=== PATIENT | male | born 1975 | race African-American/Black ===

== ENCOUNTER 2018-08-26 18:10 | Emergency (ER) | payer BC ==
[2018-08-26] MEDS ORDERED: Ondansetron ODT 4 MG TAB ONE (18:26)
[2018-08-26 19:01] LABS: #Basophils 0.1 thou/uL (0.0-0.2); #Eosinphils 0.1 thou/uL (0.0-0.7); #Lymphocytes 1.9 thou/uL (1.20-3.40); #Monocytes 0.4 thou/uL (0.11-0.59); #Neutrophils 2.5 thou/uL (1.40-6.50); %Basophils 1.7 % (0.0-1.0); %Eosinophils 1.3 % (0.0-10.0); %Lymphocytes 38.4 % (21.0-51.0); %Monocytes 8.3 % (0.0-10.0); %Neutrophils 50.3 % (42.0-75.0); Hemoglobin 14.7 g/dL (14.0-18.0); Mean Corpuscular HGB CONC 34.6 g/dL (32.0-36.0); Mean Corpuscular Hemoglobin 30.4 pg (27.0-31.0); Mean Corpuscular Volume 87.7 fL (78.0-98.0); Mean Platelet Volume 8.3 fL (7.4-10.4); Platelet Count 203 thou/uL (130-400); RBC Distribution Width 12.6 % (11.5-14.5); Red Blood Cell (RBC) Count 4.84 mill/uL (4.70-6.10)
[2018-08-26] MEDS ORDERED: Ondansetron PF 4 MG/2 ML Vial ONE (19:02)
[2018-08-26] MEDS ORDERED: Ketorolac Tromethamine 30 MG/ML VIAL ONE (19:02)
[2018-08-26 19:16] LABS: ALT (SGPT) 44 U/L (8-55); AST (SGOT) 37 U/L (5-34); Albumin 3.9 g/dL (3.5-5.0); Alkaline Phosphatase 77 U/L (40-150); Anion Gap 15 mmol/L (10-20); BUN (Urea Nitrogen) 15 mg/dL (8.9-20.6); CK (CPK) 202 U/L (30-200); Calc. Creatinine Clearance 0 mL/min (70-130); Calcium 9.4 mg/dL (7.8-10.44); Carbon Dioxide 22 mmol/L (22-29); Chloride 105 mmol/L (98-107); Estimated GFR-MDRD 80; Globulin 3.4 g/dL (2.4-3.5); Glucose 255 mg/dL (70-105); Lipase 27 U/L (8-78); Potassium 4.5 mmol/L (3.5-5.1); Protein, Total 7.3 g/dL (6.0-8.3); Sodium 137 mmol/L (136-145)
--- NOTE | 2018-08-26 20:58 | CT ---
CT ABDOMEN AND PELVIS WITH CONTRAST: HISTORY: Abdominal pain. Decreased appetite. Diarrhea. FINDINGS: ABDOMEN: The lung bases are clear. There is contrast within the distal esophagus, which would indicate reflux. The liver, spleen, pancr eas, and gallbladder regions appear unremarkable. The right and left adrenal glands and the right and left kidneys are normal in appearance. No signif icant periaortic adenopathy. There are some small mesenteric nodes, mostly seen near the root of the mesentery. Aortocaval nodes are slightly more numerous than typically seen but do not appear signif icantly enlarged and may just be reactive. There is a moderate amount of stool present within the colon. No bowel wall thickening is noted. PELVIS: A prominent paraumbilical hernia is seen with a very wide mouth to the hernia. Minimal dania iation of small bowel into this area. No obstruction. The appendix is normal. No evidence of any s ignificant free fluid or any significant adenopathy or mass. IMPRESSION: No acute findings of the abdomen or pelvis. Incidental findings as noted above. POS: BRIAN
[2018-08-26 21:03] LABS: Bilirubin Small (Negative); Blood, Urine Negative (Negative); Clarity Clear (Clear); Glucose, Urine (Dipstick) >=1000 mg/dL (Negative); Leukocyte Negative (Negative); Nitrite Negative (Negative); Protein, Urine (Dipstick) 30 mg/dL (Neg-Trace)
[2018-08-26 21:05] LABS: Specific Gravity, Urine 1.025 (1.002-1.036)
[2018-08-26 21:09] LABS: Bacteria/HPF None Seen HPF (None Seen); Hyaline Casts/LPF 0-3 HYALINE CAST LPF (0-3 Hyaline); RBC/HPF 0-3 HPF (0-3); Squamous Epithelial 0-3 HPF (0-3); WBC/HPF 0-3 HPF (0-3)
== END 2018-08-26 21:25 | disposition home or self-care (01) ==
LOC: SCSER 18:10
DX: R10.33 Periumbilical pain (principal); R11.2 Nausea with vomiting, unspecified; R19.7 Diarrhea, unspecified; I25.10 Atherosclerotic heart disease of native coronary artery without angina pectoris; E11.9 Type 2 diabetes mellitus without complications; Z79.4 Long term (current) use of insulin; K21.9 Gastro-esophageal reflux disease without esophagitis; E78.5 Hyperlipidemia, unspecified; I10 Essential (primary) hypertension
CPT/HCPCS: 74177; 80053; 81003; 81015; 82550; 83605; 83690; 85025; 96361; 96374; 96375; J1885; J2405; Q0162

== ENCOUNTER 2025-05-30 16:22 | Inpatient (IN) | payer BC, OTHER ==
[~2025-05-30 16:22] MED LIST: Iopamidol-370 76% 500 ML MDV (1 ML CHARGE) ONE
[2025-05-30] MEDS ORDERED: Ondansetron PF 4 MG/2 ML Vial ONE ×2 (16:32→16:41)
[2025-05-30 16:44] LABS: #Basophils Less than 0.03 10x3/uL (0.0-0.2); #Eosinophils Less than 0.03 10x3/uL (0.0-0.7); #Monocytes 0.50 10x3/uL (0.11-0.59); #Neutrophils 3.21 10x3/uL (1.40-6.50); %Basophils 0.3 % (0.0-1.0); %Eosinophils 0.1 % (0.0-10.0); %Lymphocytes 44.5 % (21.0-51.0); %Monocytes 7.4 % (0.0-10.0); %Neutrophils 47.4 % (42.0-75.0); Hematocrit 39.5 % (42.0-52.0); Hemoglobin 14.2 g/dL (14.0-18.0); Mean Corpuscular Hemoglobin 31.8 pg (27.0-31.0); Mean Corpuscular Volume 88.6 fL (78.0-98.0); Platelet Count 184 10x3/uL (130-400); Red Blood Cell (RBC) Count 4.46 mill/uL (4.70-6.10); White Blood Cell (WBC) Count 6.77 10x3/uL (4.8-10.8)
[2025-05-30 17:04] LABS: ALT (SGPT) 28 U/L (Less than 45); AST (SGOT) 31 U/L (11-34); Albumin 4.1 g/dL (3.1-4.5); Alkaline Phosphatase 70 U/L (40-110); Anion Gap 24 mmol/L (10-20); BUN (Urea Nitrogen) 13 mg/dL (8.4-25.7); Bilirubin, Total 1.7 mg/dL (0.3-1.2); Calc. Creatinine Clearance 0 mL/min (70-130); Calcium 9.7 mg/dL (7.8-10.44); Carbon Dioxide 14 mmol/L (22-29); Chloride 102 mmol/L (98-107); Globulin 3.6 g/dL (2.4-3.5); Glucose 262 mg/dL (70-105); Potassium 3.5 mmol/L (3.5-5.1); Sodium 136 mmol/L (136-145)
[2025-05-30 17:41] LABS: Lipase 68 U/L (8-78); Magnesium 1.5 mg/dL (1.6-2.6)
[2025-05-30 17:42] LABS: Acetaminophen Less than 10 mcg/mL (Less than 10); Salicylate Less than 8.0 mg/dL (Less than 8.0)
[2025-05-30] MEDS ORDERED: LevoFLOXacin 750 mg/D5W 150 ml Premix Bag ONE (18:40)
[2025-05-30] MEDS ORDERED: Dextrose 50% Abboject 50 ML SYRINGE SLOW IVP PRN (20:30)
[2025-05-30] MEDS ORDERED: hydrALAZINE 20 MG/ML VIAL SLOW IVP PRN (20:30)
[2025-05-30] MEDS ORDERED: Glucagon 1 MG/ML KIT IM PRN (20:30)
[2025-05-30 20:33] LABS: Actual Bicarbonate (HCO3v) 20.7 mEq/L (22-28); Base Excess -2.1 mEq/L (-2.0 to +3.0); Calcium, Ionized (venous) 1.09 mmol/L (1.16-1.32); Chloride (VBG) 101 mmol/L (98-106); Hematocrit-VBG 46 % (42.0-52.0); Hemoglobin (Hb) 15.6 g/dL (13.1-17.2); Potassium (VBG) 3.68 mmol/L (3.70-5.30); Sodium 140 mmol/L (133-146)
[2025-05-30] MEDS ORDERED: Cefepime 2 GM VIAL ONE (20:52)
[2025-05-30] MEDS ORDERED: metroNIDAZOLE 500 MG (100 mL) BAG ONE (21:53)
[2025-05-30] MEDS ORDERED: Famotidine/PF 20 mg/2ml Vial ONE (21:53)
[2025-05-30] MEDS: Famotidine 20 MG TAB PO SCH (22:10)
[2025-05-30] MEDS ORDERED: Magnesium 2 GM/50 ML BAG (IN WATER) ONE (23:48)
[2025-05-30] MEDS: Magnesium 2 GM/50 ML(in water) 2 GM in Premix 1 BAG IVPB SCH (23:54)
[2025-05-31 01:17] VITALS: BMI 21.4
[2025-05-31] MEDS: Acetaminophen 500 MG TAB PO SCH (01:58)
[2025-05-31] MEDS ORDERED: Acetaminophen 500 MG TAB PO SCH (02:00)
[2025-05-31 04:15] LABS: #Basophils Less than 0.03 10x3/uL (0.0-0.2); #Eosinophils Less than 0.03 10x3/uL (0.0-0.7); #Monocytes 0.36 10x3/uL (0.11-0.59); #Neutrophils 4.81 10x3/uL (1.40-6.50); %Basophils 0.2 % (0.0-1.0); %Eosinophils 0.0 % (0.0-10.0); %Lymphocytes 12.8 % (21.0-51.0); %Monocytes 6.1 % (0.0-10.0); %Neutrophils 80.7 % (42.0-75.0); Hematocrit 39.0 % (42.0-52.0); Hemoglobin 13.6 g/dL (14.0-18.0); Mean Corpuscular Hemoglobin 31.9 pg (27.0-31.0); Mean Corpuscular Volume 91.5 fL (78.0-98.0); Platelet Count 148 10x3/uL (130-400); Red Blood Cell (RBC) Count 4.26 mill/uL (4.70-6.10); White Blood Cell (WBC) Count 5.95 10x3/uL (4.8-10.8)
[2025-05-31 04:37] LABS: ALT (SGPT) 27 U/L (Less than 45); AST (SGOT) 19 U/L (11-34); Albumin 3.9 g/dL (3.1-4.5); Alkaline Phosphatase 62 U/L (40-110); Anion Gap 15 mmol/L (10-20); BUN (Urea Nitrogen) 14 mg/dL (8.4-25.7); Bilirubin, Total 1.6 mg/dL (0.3-1.2); Calc. Creatinine Clearance 95 mL/min (70-130); Calcium 8.5 mg/dL (7.8-10.44); Carbon Dioxide 20 mmol/L (22-29); Chloride 107 mmol/L (98-107); Globulin 3.1 g/dL (2.4-3.5); Glucose 226 mg/dL (70-105); Potassium 4.0 mmol/L (3.5-5.1); Sodium 138 mmol/L (136-145)
[2025-05-31] MEDS: Ketorolac Tromethamine 30 MG (1 mL) VIAL IVP SCH (06:48)
[2025-05-31] MEDS ORDERED: Ondansetron PF 4 MG/2 ML Vial IVP PRN (10:24)
[2025-05-31] MEDS: Pantoprazole 40 MG VIAL IVP SCH (11:49)
[2025-05-31] MEDS: Aspirin 81 mg Enteric Coated Tablet PO SCH (12:25)
[2025-05-31] MEDS: BIKTARVY 50-200-25 MG TABLET PO SCH (12:26)
[2025-05-31] MEDS ORDERED: Furosemide 40 MG (4 mL) VIAL SLOW IVP SCH (14:00)
[2025-05-31] MEDS: Ketorolac Tromethamine 30 MG (1 mL) VIAL IVP PRN (16:20)
[2025-05-31] MEDS: Insulin Glargine 30 UNITS/0.3 ML VIAL SC SCH (20:56)
[2025-06-01 04:13] LABS: #Basophils Less than 0.03 10x3/uL (0.0-0.2); #Eosinophils Less than 0.03 10x3/uL (0.0-0.7); #Monocytes 0.40 10x3/uL (0.11-0.59); #Neutrophils 2.93 10x3/uL (1.40-6.50); %Basophils 0.2 % (0.0-1.0); %Eosinophils 0.2 % (0.0-10.0); %Lymphocytes 32.5 % (21.0-51.0); %Monocytes 8.0 % (0.0-10.0); %Neutrophils 58.9 % (42.0-75.0); Hematocrit 36.2 % (42.0-52.0); Hemoglobin 12.4 g/dL (14.0-18.0); Mean Corpuscular Hemoglobin 31.6 pg (27.0-31.0); Mean Corpuscular Volume 92.1 fL (78.0-98.0); Platelet Count 163 10x3/uL (130-400); Red Blood Cell (RBC) Count 3.93 mill/uL (4.70-6.10); White Blood Cell (WBC) Count 4.98 10x3/uL (4.8-10.8)
[2025-06-01 04:27] LABS: ALT (SGPT) 24 U/L (Less than 45); AST (SGOT) 22 U/L (11-34); Albumin 3.5 g/dL (3.1-4.5); Alkaline Phosphatase 53 U/L (40-110); Anion Gap 15 mmol/L (10-20); BUN (Urea Nitrogen) 18 mg/dL (8.4-25.7); Bilirubin, Total 1.4 mg/dL (0.3-1.2); Calc. Creatinine Clearance 77 mL/min (70-130); Calcium 8.4 mg/dL (7.8-10.44); Carbon Dioxide 23 mmol/L (22-29); Chloride 108 mmol/L (98-107); Globulin 2.9 g/dL (2.4-3.5); Glucose 128 mg/dL (70-105); Potassium 3.7 mmol/L (3.5-5.1); Sodium 142 mmol/L (136-145)
[2025-06-01] MEDS: Acetaminophen 325 MG TAB PO PRN (04:54)
[2025-06-01] MEDS: Pantoprazole 40 MG VIAL IVP SCH (08:43)
[2025-06-01 14:37] LABS: %CD4 Pos. Lymph 26.9 % (30.8-58.5); Absolute CD4 215 /uL (359-1519); Lymphocytes/Gated Cell Count 0.8 x10E3/uL (0.7-3.1); Total Lymphocyte 14 % (Not Estab.); WBC Total Count 6.2 x10E3/uL (3.4-10.8)
[2025-06-02 04:34] LABS: #Basophils Less than 0.03 10x3/uL (0.0-0.2); #Eosinophils Less than 0.03 10x3/uL (0.0-0.7); #Monocytes 0.52 10x3/uL (0.11-0.59); #Neutrophils 1.85 10x3/uL (1.40-6.50); %Basophils 0.2 % (0.0-1.0); %Eosinophils 0.5 % (0.0-10.0); %Lymphocytes 42.7 % (21.0-51.0); %Monocytes 12.4 % (0.0-10.0); %Neutrophils 44.2 % (42.0-75.0); Hematocrit 34.6 % (42.0-52.0); Hemoglobin 12.2 g/dL (14.0-18.0); Mean Corpuscular Hemoglobin 32.7 pg (27.0-31.0); Mean Corpuscular Volume 92.8 fL (78.0-98.0); Platelet Count 160 10x3/uL (130-400); Red Blood Cell (RBC) Count 3.73 mill/uL (4.70-6.10); White Blood Cell (WBC) Count 4.19 10x3/uL (4.8-10.8)
[2025-06-02 04:50] LABS: ALT (SGPT) 31 U/L (Less than 45); AST (SGOT) 25 U/L (11-34); Albumin 3.4 g/dL (3.1-4.5); Alkaline Phosphatase 49 U/L (40-110); Anion Gap 16 mmol/L (10-20); BUN (Urea Nitrogen) 20 mg/dL (8.4-25.7); Bilirubin, Total 1.3 mg/dL (0.3-1.2); Calc. Creatinine Clearance 76 mL/min (70-130); Calcium 8.7 mg/dL (7.8-10.44); Carbon Dioxide 23 mmol/L (22-29); Chloride 108 mmol/L (98-107); Globulin 2.8 g/dL (2.4-3.5); Glucose 114 mg/dL (70-105); Potassium 3.5 mmol/L (3.5-5.1); Sodium 143 mmol/L (136-145)
[2025-06-02 10:28] VITALS: BP 138/90; TEMP 97.6
== END 2025-06-02 14:38 | disposition home or self-care (01) | DRG 445 ==
LOC: ERS 16:22 → ERHOLD 20:34 → PCU 23:21
PROVIDERS: ADMIT Colon & Rectal Surgery; ATTEND Colon & Rectal Surgery
DX: K80.20 Calculus of gallbladder without cholecystitis without obstruction (principal); E87.20 Acidosis, unspecified; I25.10 Atherosclerotic heart disease of native coronary artery without angina pectoris; E11.9 Type 2 diabetes mellitus without complications; Z21 Asymptomatic human immunodeficiency virus [HIV] infection status; R19.7 Diarrhea, unspecified; E83.42 Hypomagnesemia; E78.5 Hyperlipidemia, unspecified; R07.1 Chest pain on breathing; Z79.82 Long term (current) use of aspirin; Z95.5 Presence of coronary angioplasty implant and graft; Z79.899 Other long term (current) drug therapy
CPT/HCPCS: 36415; 36416; 70450; 71045; 71275; 74174; 76705; 78226; 78452; 80053; 80307; 82805; 83605; 83690; 83735; 84443; 84484; 85025; 86361; 87040; 93005; 93017; 93306; 96365; 96366; 96368; 96375; A9502; A9537; J0692; J1308; J1815; J1885; J1956; J2060; J2270; J2405; J2470; J2543; J2785; J3010; J3475; J7030; Q9967